=== PATIENT | female | born 1985 | race Hispanic/Latino ===

== ENCOUNTER 2018-08-11 07:39 | Emergency (ER) | payer OTHER ==
[~2018-08-11] VITALS: Ht 165.1 cm; Wt 72.2 kg
[2018-08-11 08:38] LABS: BASO % 0.1 % (0.0-1.0); EOS # 0.1 10^3/uL (0.0-0.50); LYMPH # 1.4 10^3/uL (1.5-4.5); LYMPH % 20.5 % (24.0-44.0); MEAN CORPUSCULAR HEMOGLOBIN 27.2 pg (27.0-33.0); MEAN CORPUSCULAR HGB CONC 33.3 g/dl (32.0-36.5); MEAN CORPUSCULAR VOLUME 81.7 fl (80.0-96.0); MONO # 0.5 10^3/uL (0.0-0.8); MONO % 6.7 % (0.0-5.0); NEUTROPHILS # 4.9 10^3/uL (1.8-7.7); NEUTROPHILS % 71.4 % (36.0-66.0); PLATELET COUNT, AUTOMATED 212 10^3/uL (150-450); RED BLOOD COUNT 4.04 10^6/uL (4.00-5.40); WHITE BLOOD COUNT 6.9 10^3/uL (4.0-10.0)
[2018-08-11 09:22] LABS: BLOOD UREA NITROGEN 9 MG/DL (7-18); CALCIUM LEVEL 8.6 MG/DL (8.5-10.1); CARBON DIOXIDE LEVEL 24 MEQ/L (21-32); CHLORIDE LEVEL 108 MEQ/L (98-107); CREATININE FOR GFR 0.59 MG/DL (0.55-1.30); GLOMERULAR FILTRATION RATE > 60.0 (>60); GLUCOSE, FASTING 85 MG/DL (70-100); HCG, SERUM QUANTITATIVE 10816 MIU/ML; POTASSIUM SERUM 3.7 MEQ/L (3.5-5.1); SODIUM LEVEL 140 MEQ/L (136-145)
--- NOTE | 2018-08-11 09:28 | REP ---
PELVIC ULTRASOUND: Real-time sonographic evaluation of the pelvis performed utilizing transabdominal technique. There is an intrauterine gestational sac. Uterus measures 11.0 x 8.8 x 8.0 cm. A pole is seen within the gestational sac 21 mm in length corresponding to an estimated gestational age of 8 weeks 5 days. No heart motion is detected. Findings are consistent with intrauterine demise. Ovaries are normal in size and echotexture, right ovary measuring 3.0 x 1.8 x 2.0 cm and left ovary 4.7 x 2.2 x 2.8 cm. There is no adnexal mass or free fluid. There is no evidence of ovarian torsion, resistive index right ovary 0.53 and left ovary 0.56. IMPRESSION: Intrauterine gestational sac contains a fetus with crown-rump length 21 mm corresponding to estimated gestational age of 8 weeks 5 days. No heart motion is detected compatible with intrauterine demise. Electronically Signed by Shoaib Melvin MD 08/11/2018 04:35 P
[2018-08-11] MEDS ORDERED: NS 1,000 ML IV ONE (10:00)
[2018-08-11 10:05] LABS: CHLAMYDIA DNA AMPLIFICATION NEGATIVE (NEGATIVE); GC DNA AMPLIFICATION NEGATIVE (NEGATIVE)
[2018-08-11 10:56] VITALS: BP 107/66
== END 2018-08-11 10:57 | disposition home or self-care (01) ==
LOC: M ED 07:39
DX: O20.0 Threatened abortion (principal); Z3A.08 8 weeks gestation of pregnancy

== ENCOUNTER 2018-08-17 11:32 | Day surgery (SDC) | payer OTHER ==
[~2018-08-17] VITALS: Ht 165.1 cm; Wt 70.8 kg
[~2018-08-17 11:32] MED LIST: LIDOCAINE 2% INJ 100 MG/5 ML SDV (FOR ANES.) As Ordered ONE; MIDAZOLAM INJ 2 MG/2 ML VIAL (J2250) As Ordered ONE; ONDANSETRON 4MG/2ML VIAL (J2405) As Ordered ONE; PROPOFOL 200 MG/20 ML VIAL As Ordered ONE; ROCURONIUM BROMIDE 50 MG/5 ML VIAL As Ordered ONE; dexameTHASONE 4 MG/ML 1ML VIAL (J1100) As Ordered ONE; fentaNYL 100 MCG/2 ML INJECTION (J3010) As Ordered ONE
[2018-08-17 12:00] LABS: HEMATOCRIT 35.5 % (36.0-47.0); HEMOGLOBIN 11.6 g/dl (12.0-15.5); MEAN CORPUSCULAR HEMOGLOBIN 27.5 pg (27.0-33.0); MEAN CORPUSCULAR HGB CONC 32.7 g/dl (32.0-36.5); MEAN CORPUSCULAR VOLUME 84.1 fl (80.0-96.0); PLATELET COUNT, AUTOMATED 239 10^3/uL (150-450); RED BLOOD COUNT 4.22 10^6/uL (4.00-5.40); WHITE BLOOD COUNT 6.4 10^3/uL (4.0-10.0)
[2018-08-17] MEDS ORDERED: LR 1,000 ML IV SCH ×2 (12:00→14:00)
[2018-08-17] MEDS ORDERED: DOXYCYCLINE HYCLATE 100 MG TAB PO ONE ×2 (12:00→12:30)
[2018-08-17] MEDS ORDERED: DOXYCYCLINE HYCLATE 100 MG TAB As Ordered ONE (12:28)
[2018-08-17] MEDS ORDERED: LR 1,000 ML IV ONE (12:30)
[2018-08-17] MEDS ORDERED: BUPIVACAINE HCL 0.25% 30 ML VIAL As Ordered ONE (12:53)
[2018-08-17] MEDS ORDERED: SILVER NITRATE APPLICATOR As Ordered ONE ×2 (13:16→13:31)
[2018-08-17] MEDS ORDERED: fentaNYL 100 MCG/2 ML INJECTION (J3010) IV PRN (14:00)
[2018-08-17] MEDS ORDERED: ONDANSETRON 4MG/2ML VIAL (J2405) IV PRN (14:00)
[2018-08-17] MEDS ORDERED: KETOROLAC 30 MG/ML VIAL (J1885) IV PRN (14:00)
[2018-08-17] MEDS ORDERED: PERCOCET 5MG/325MG TAB PO PRN (14:00)
[2018-08-17 15:25] VITALS: BP 107/58
--- NOTE | 2018-08-18 19:37 | RO ---
DATE OF PROCEDURE: 08/17/2018 PREOPERATIVE DIAGNOSIS: Missed (AB) at 11 weeks, measuring 9 weeks. POSTOPERATIVE DIAGNOSIS: Missed at 11 weeks, measuring 9 weeks. PROCEDURE: Dilation and Curettage SURGEON: Dr. Shoaib Fernandez ANESTHESIA: LMA, general. ESTIMATED BLOOD LOSS: 100 mL DRAINS: None. FLUIDS REPLACED: 800 mL of lactated Ringer's PREOP ANTIBIOTICS: Doxycycline 100 mg times one, also given one dose postop.. SPECIMENS: Products of conception. INDICATION: G3, P2 at 11 weeks, found to have a missed AB, given almost a week to pass it naturally, desired dilation and curettage thereafter when it did not happen naturally. FINDINGS: 10-week size uterus, normal axial shape, normal adnexa bilaterally on exam under anesthesia. DESCRIPTION OF PROCEDURE: The patient was taken to the operating room with an IV in place and placed in low lithotomy without difficulty after LMA anesthesia induction. She was prepped and draped in the normal sterile fashion after exam under anesthesia was performed. A time-out was performed. A weighted Auvard speculum and a De retractor were used to isolate the cervix, and the cervix was grasped with a tenaculum on the anterior lip. 10 mL of 0.25% Marcaine were injected circumferentially to obtain an adequate paracervical block. The cervix was then sequentially dilated as much as all the Hanks would allow. A curved 9 mm curette was then placed into the uterus and with sequential in and out and spinning maneuvers, the entire endometrial contents were evacuated. There was a significant amount of fluid and tissue present. This was repeated times three. She was then sharply curetted times two and then suction curetted one more time with hemostasis noted from the cervical os. Tenaculum was removed and a small amount of chemical cautery was needed to obtain hemostasis from the tenaculum sites. Hemostasis was noted at the end of the case. All counts were correct, and the case was uncomplicated overall. JESSE
== END 2018-08-17 15:25 | disposition home or self-care (01) ==
LOC: M SDC 11:32
PROVIDERS: ATTEND Obstetrics & Gynecology
DX: O02.1 Missed abortion (principal)
CPT/HCPCS: 36415; 59820; 85027; 86850; 86900; 86901; 88305; J1100; J1885; J2250; J2405; J3010